=== PATIENT | male | born 1960 | race Two or more races ===

== ENCOUNTER 2024-02-10 10:19 | Day surgery (SDC) | payer BC ==
[2024-02-08 09:43] LABS: Basophils # (auto) 0 10 ^3/uL (0-0.2); Basophils % (auto) 1.2 % (0.0-2.0); Eosinophils # (auto) 0.1 10 ^3/uL (0-0.8); Eosinophils % (auto) 1.8 % (0.0-7.0); Hemoglobin 15.3 g/dL (13.5-17.5); Lymphocytes # (auto) 1.2 10 ^3/uL (0.4-5.4); Lymphocytes % (auto) 28.3 % (10.0-50.0); Mean Corpuscular Hemoglobin 29.8 pg (28.0-32.0); Mean Corpuscular Hgb Conc. 34.8 g/dL (32.0-36.0); Mean Corpuscular Volume 85.7 fL (80.0-100.0); Monocytes # (auto) 0.4 10 ^3/uL (0-1.3); Neutrophils # (auto) 2.5 10 ^3/uL (1.6-8.6); Neutrophils % (auto) 59.7 % (37.0-80.0); Nucleated Red Blood Cells % 0.1 %; Red Blood Cells 5.13 10^6/uL (4.5-5.90); Red Cell Distribution Width 14.3 % (11.8-14.3); White Blood Cell 4.1 10^3/uL (4.4-10.8)
[2024-02-08 10:08] LABS: INR 1.09 (0.9-1.15); Partial Thromboplastin Time 26.2 SEC (24.5-34.5); Prothrombin Time 11.5 sec (9.3-11.8)
[2024-02-08 10:28] LABS: Alanine Aminotransferase 20 U/L (7-40); Alkaline Phosphatase 77 U/L (46-116); Anion Gap 6 (5-15); Aspartate Aminotransferase 13 U/L (13-40); BUN/Creatinine Ratio 12.5 (10.0-20.0); Blood Urea Nitrogen 13 mg/dL (9-23); Calcium 9.5 mg/dL (8.5-10.1); Carbon Dioxide 25 mmol/L (20-30); Chloride 109 mmol/L (98-107); Glucose 107 mg/dL (74-106); Potassium 4.1 mmol/L (3.5-5.1); Sodium 140 mmol/L (136-145)
[2024-02-08 10:29] LABS: Bilirubin, Total 0.6 mg/dL (0.2-1.0); Total Protein 6.9 g/dL (5.7-8.2)
[2024-02-08 10:32] LABS: Albumin 4.3 g/dL (3.2-4.8)
[~2024-02-10] VITALS: Ht 177.8 cm; Wt 88.5 kg
[2024-02-10] MEDS ORDERED: SODIUM CHLORIDE LOCK 10 ML ONE (12:08)
[2024-02-10] MEDS ORDERED: MIDAZOLAM HCL 5 MG/ML-1ML VIAL ONE (12:08)
[2024-02-10] MEDS ORDERED: diphenhdrAMINE HCL 50 MG/1 ML VL ONE (12:09)
[2024-02-10] MEDS ORDERED: fentaNYL CITRATE 100 MCG/2 ML VL ONE ×2 (12:09→14:42)
[2024-02-10] MEDS ORDERED: MIDAZOLAM HCL 2MG/2ML 2ml VIAL (1mg/ml) ONE (14:43)
[2024-02-10] MEDS ORDERED: PROPOFOL 10 MG/ML 20 ML IV ONE (15:01)
[2024-02-10 15:17] VITALS: RESP 16; TEMP 97.4; O2SAT 99
[2024-02-10] MEDS ORDERED: ONDANSETRON HCL 4 MG/2 ML VIAL IV ONE (15:30)
[2024-02-10 15:40] VITALS: BP 126/83; PULSE 59; RESP 16; O2SAT 98
== END 2024-02-10 15:49 | disposition home or self-care (01) ==
LOC: GI 10:19
PROVIDERS: ATTEND Internal Medicine Gastroenterology
DX: Z12.11 Encounter for screening for malignant neoplasm of colon (principal); K63.5 Polyp of colon; K57.30 Diverticulosis of large intestine without perforation or abscess without bleeding; K64.8 Other hemorrhoids; Z80.0 Family history of malignant neoplasm of digestive organs; Z86.010 Personal history of colon polyps; Z79.899 Other long term (current) drug therapy; Z98.890 Other specified postprocedural states
CPT/HCPCS: 36415; 45380; 80053; 85025; 85610; 85730; 88305; J1200; J2250; J2704; J3010; J7030